=== PATIENT | female | born 1990 | race Caucasian/White ===

== ENCOUNTER 2019-01-01 08:28 | Emergency (ER) | payer OTHER ==
[~2019-01-01] VITALS: Ht 157.5 cm; Wt 77.4 kg
[~2019-01-01 08:28] MED LIST: MEDR5TAB PO
[2019-01-01 08:31] VITALS: Ht 157.5 cm; Wt 77.4 kg
[2019-01-01] MEDS ORDERED: KETOROLAC 30 MG INJ IV STA (10:34)
[2019-01-01] MEDS ORDERED: SOD CHLORIDE 0.9% 1,000 ML IV STA (10:34)
[2019-01-01] MEDS ORDERED: METOCLOPRAMIDE 10 MG INJ IV STA (10:34)
[2019-01-01] MEDS ORDERED: DIPHENHYDRAMINE 50 MG INJ IV STA (10:34)
[2019-01-01] MEDS ORDERED: NAPR-985 PO (12:45)
[2019-01-01] MEDS ORDERED: METO10TA92 PO (12:45)
[2019-01-01] MEDS ORDERED: DEXAMETHASONE 10 MG/ML 1 ML INJ IV ONE (13:00)
[2019-01-01 13:05] VITALS: BP 118/83; PULSE 68; RESP 18
--- NOTE | 2019-01-01 14:21 | ERD ---
ER Documentation Chief Complaint Chief Complaint headache, dizziness and vomitting since monday HPI 28-year-old female coming in today with Chief Complaint: Headache History of Present Illness: Patient coming in today with complaint of headache for 3 days. Associated symptoms include dizziness, vomiting approximately 5 times over the weekend, photophobia, phonophobia. Denies use of medications at home for symptoms. Reports having history of migraine previously, but it has been a while. No altered mental status, confusion, unsteady walking, or other neurological deficits. Last menstrual period 12/26. Patient with no hormonal use, uses ParaGard for intrauterine device. Review of systems: All systems were reviewed and are negative except for what is indicated in the history of present illness. Past Medical History: Negative for hypertension, diabetes or other medical problems Social History: Patient denies tobacco, alcohol, elicit drug use Medications: ParaGard Allergies: NKDA Social Concerns: Denies ROS All systems reviewed and are negative except as per history of present illness. Medications Home Meds Active Scripts Metoclopramide* (Reglan*) 10 Mg Tablet, 10 MG PO Q6 PRN for NAUSEA AND/OR VOMITING, #10 TAB Prov:SOFIA LOPEZ V [employer] 01/01/19 Naproxen* (Naprosyn*) 500 Mg Tablet, 500 MG PO BID PRN for PAIN AND/OR INFLAMMAT ION, #30 TAB Prov:SOFIA LOPEZ V [employer] 01/01/19 Medroxyprogesterone Acetate* (Provera*) 5 Mg Tablet, 5 MG PO DAILY for 5 Days, TAB Prov:MATTHEW COLÓN 05/03/16 Allergies Allergies: Coded Allergies: No Known Allergy (Unverified , 03/03/16) PMhx/Soc Medical and Surgical Hx: pt denies Medical Hx, pt denies Surgical Hx History of Surgery: No Anesthesia Reaction: No Hx Neurological Disorder: No Hx Respiratory Disorders: No Hx Cardiac Disorders: No Hx Psychiatric Problems: No Hx Miscellaneous Medical Probl: No Hx Alcohol Use: Yes (social) Hx Substance Use: No Hx Tobacco Use: No FmHx Family History: diabetes; No coronary disease Physical Exam Vitals Vital Signs Date Temp Pulse Resp B/P (MAP) Pulse Ox O2 O2 Flow FiO2 Time Delivery Rate 01/01/19 98.4 68 18 118/83 100 Room Air 13:05 (95) 01/01/19 97.8 100 19 142/86 99 08:31 (104) Physical Exam Const: No acute distress. Patient speaking in clear sentences, and answering questions appropriately without difficulty. Head: Atraumatic Eyes: Normal Conjunctiva ENT: Normal External Ears, Nose and Mouth. Neck: Full range of motion. No meningismus. Resp: Clear to auscultation bilaterally Cardio: Regular rate and rhythm, no murmurs Abd: Soft, non tender, non distended. Normal bowel sounds Skin: No petechiae or rashes Back: No midline or flank tenderness Ext: No cyanosis, or edema Neur: Awake and alert. Neuro exam unremarkable. Psych: Normal Mood and Affect Result Diagram: 01/01/19 1052 01/01/19 1052 Results 24 hrs Laboratory Tests Test 01/01/19 10:50 01/01/19 10:52 POC Beta HCG, Qualitative NEGATIVE White Blood Count 6.2 10^3/ul Red Blood Count 4.07 10^6/ul Hemoglobin 12.2 g/dl Hematocrit 36.9 % Mean Corpuscular Volume 90.7 fl Mean Corpuscular Hemoglobin 30.0 pg Mean Corpuscular Hemoglobin Concent 33.1 g/dl Red Cell Distribution Width 11.7 % Platelet Count 235 10^3/UL Mean Platelet Volume 10.6 fl Immature Granulocytes % 0.300 % Neutrophils % 69.7 % Lymphocytes % 22.2 % Monocytes % 6.3 % Eosinophils % 1.0 % Basophils % 0.5 % Nucleated Red Blood Cells % 0.0 /100WBC Immature Granulocytes # 0.020 10^3/ul Neutrophils # 4.3 10^3/ul Lymphocytes # 1.4 10^3/ul Monocytes # 0.4 10^3/ul Eosinophils # 0.1 10^3/ul Basophils # 0.0 10^3/ul Nucleated Red Blood Cells # 0.0 10^3/ul Sodium Level 143 mmol/L Potassium Level 4.2 mmol/L Chloride Level 103 mmol/L Carbon Dioxide Level 28 mmol/L Anion Gap 12 Blood Urea Nitrogen 8 mg/dl Creatinine 0.58 mg/dl Est Glomerular Filtrat Rate mL/min > 60 mL/min Glucose Level 101 mg/dl Calcium Level 9.7 mg/dl Current Medications Medications Dose Sig/Lexus Start Time Status Last (Trade) Ordered Route PRN Stop Time Admin Dose Reason Admin Sodium 1,000 ml @ Q1H STAT 01/01/19 DC 01/01/19 Chloride 1,000 mls/hr IV 10:34 11:01 01/01/19 11:33 10 mg ONCE STAT 01/01/19 DC 01/01/19 Metoclopramid IV 10:34 11:00 e HCl 01/01/19 10:37 (Reglan) Ketorolac 30 mg ONCE STAT 01/01/19 DC 01/01/19 Tromethamine IV 10:34 11:00 (Toradol) 01/01/19 10:37 25 mg ONCE STAT 01/01/19 DC 01/01/19 Diphenhydrami IV 10:34 11:00 ne HCl 01/01/19 10:37 (Benadryl) 8 mg ONCE ONCE 01/01/19 DC 01/01/19 Dexamethasone IV 13:00 12:57 (Decadron) 01/01/19 13:01 Procedures/MDM ED course includes a thorough examination and history. ED course includes labs; CBC, CMP, . ED course includes medication; IV NS fluids, Benadryl, Reglan, Toradol. Low suspicion for life-threatening medical emergency. Patient with no neuro deficits, CT unwarranted at this moment. Otherwise healthy patient presenting with constellation of symptoms likely representing uncomplicated Headache, possibly migraine as characterized by history, physical exam findings. CBC, CMP unremarkable. HCG negative. Patient reassessment: Dizziness, headache, vomiting, nausea; although longer present. Patient desiring to go home. Room darkened. Patient becomes "nervous, insulin questions appropriately. Understanding of return precautions and follow-up care. Labs discussed. No respiratory distress, otherwise relatively well appearing and nontoxic. Patient educated on diagnoses, prescriptions, follow-up care, return precautions. Strict return precautions given for worsening condition; questions answered discharge. Disposition for discharge with followup in 2 days with PCP/clinic reevaluation of symptoms . Departure Diagnosis: Primary Impression: Headache Headache type: unspecified Headache chronicity pattern: unspecified pattern Condition: Stable Patient Instructions: Migraines and Cluster Headaches, Self-Care for Headaches, Migraine Headache: Stages and Treatment Additional Instructions: Call your primary care doctor TOMORROW for an appointment during the next 2-3 days.See the doctor sooner or return here if your condition worsens before your appointment time. Return to ER if any signs of persistent nausea vomiting despite medication administration, altered mental status, worse headache of her life, unsteady walking, persistent dizziness. SOFIA LOPEZ NP Jan 01, 2019 14:20
== END 2019-01-01 13:05 | disposition home or self-care (01) ==
LOC: FTE 08:28
DX: R51 Headache (principal)
CPT/HCPCS: 36415; 80048; 81025; 85025; 96361; 96374; 96375; J1100; J1200; J1885; J2765; J7030; Z7502